=== PATIENT | male | born 1975 | race Caucasian/White ===

== ENCOUNTER 2020-05-25 09:04 | Outpatient (CLI) | payer BC, SELFPAY ==
--- NOTE | 2020-05-25 | US_ITS ---
WS: [id number] ULTRASOUND ABDOMEN LIMITED CLINICAL INFORMATION: ELEVATED LIVER FUNCTION TESTS COMPARISON: None. FINDINGS: Liver Size: Enlarged Measurements: 14.8 x 18.3 cm. Echogenicity: Fatty infiltration Surface nodularity: None. Mass (size and location): Right Hepatic cyst measuring 2.6 x 2.3 x 2.6 cm Bile ducts Intrahepatic ducts: Normal. Common bile duct diameter: 2.6 mm. Gallbladder Normal. Gallstones: None. Gallbladder sludge: None. Gallbladder wall thickening: None. Pericholecystic fluid: None. Sonographic Herman sign: Absent. Pancreas Normal as visualized. Right kidney: Normal. Hydronephrosis: None. Size: 10.6 cm x 6.2 cm x 5.8 cm. Abdominal aorta and IVC Visualized portions are normal. Ascites: None. US/US liver [id number] IMPRESSION: 1. Hepatomegaly with diffuse fatty infiltration. 2. Simple 2.6 cm right hepatic cyst. 3. Normal gallbladder. 4. No hydronephrosis in right kidney.
== END 2020-05-25 09:05 | disposition home or self-care (01) ==
PROVIDERS: PCP Family Medicine; Visit Provider Physician Assistant
DX: R94.5 Abnormal results of liver function studies (principal); R16.0 Hepatomegaly, not elsewhere classified; K76.0 Fatty (change of) liver, not elsewhere classified; K76.89 Other specified diseases of liver
CPT/HCPCS: 76705

== ENCOUNTER → 2024-01-18 15:24 | Outpatient (BNVA) | payer OTHER, SELFPAY | PROVIDERS: Visit Provider Nurse Practitioner Family | DX: I10 Essential (primary) hypertension (principal); R73.9 Hyperglycemia, unspecified; E78.5 Hyperlipidemia, unspecified; K76.0 Fatty (change of) liver, not elsewhere classified; R07.9 Chest pain, unspecified | CPT/HCPCS: 93005 ==

== ENCOUNTER → 2025-06-17 10:12 | Outpatient (BNVA) | payer BC, SELFPAY | PROVIDERS: PCP Family Medicine; Visit Provider Family Medicine | DX: I10 Essential (primary) hypertension (principal); E78.5 Hyperlipidemia, unspecified | CPT/HCPCS: 80053; 80061; 83036; 84439; 84443; 85025 ==